=== PATIENT | male | born 1975 | race Caucasian/White ===

== ENCOUNTER 2019-06-20 06:03 | Emergency (ER) | payer MEDICAID ==
[2019-06-20] MEDS ORDERED: OXYCODONE/ACETAMINOPHEN (10/325) TAB PO (07:00)
[2019-06-20] MEDS: HYDROmorphONE 0.5 MG/0.5 ML SYG IM (07:10)
[2019-06-20] MEDS: KETOROLAC 60 MG INJ IM (07:10)
== END 2019-06-20 07:45 | disposition home or self-care (01) ==
LOC: FTE 06:03
DX: M54.2 Cervicalgia (principal)
CPT/HCPCS: 96372; 99284-25; J1170

== ENCOUNTER 2019-07-05 08:22 | Emergency (ER) | payer MEDICAID ==
[2019-07-05] MEDS: HYDROCODONE/APAP (5/325) TAB PO (08:51)
[2019-07-05] MEDS: KETOROLAC 30 MG INJ IM (08:52)
== END 2019-07-05 10:02 | disposition home or self-care (01) ==
LOC: FTE 08:22
DX: M54.2 Cervicalgia (principal); F17.210 Nicotine dependence, cigarettes, uncomplicated
CPT/HCPCS: 70450; 72125; 96372; 99285-25

== ENCOUNTER 2019-07-30 17:02 | Emergency (ER) | payer MEDICAID ==
[2019-07-30] MEDS: KETOROLAC 30 MG INJ IM (17:27)
== END 2019-07-30 18:05 | disposition home or self-care (01) ==
LOC: FTE 18:05
DX: S29.012A Strain of muscle and tendon of back wall of thorax, initial encounter (principal); X58.XXXA Exposure to other specified factors, initial encounter; Y92.9 Unspecified place or not applicable; Z87.891 Personal history of nicotine dependence
CPT/HCPCS: 71045; 96372; 99284-25